=== PATIENT | male | born 1960 | race American Indian/Alaskan Native ===

== ENCOUNTER 2017-11-23 12:53 | Emergency (ER) | payer SELFPAY ==
--- NOTE | 2017-11-23 18:11 | Emergency Department Report ---
ED Lower Extremity HPI - General Chief Complaint: Extremity Injury, Lower Stated Complaint: (R) PATELLAR FRACTURE Time Seen by Provider: 11/23/17 17:19 Source: patient Mode of arrival: Ambulatory Limitations: No Limitations - History of Present Illness Initial Comments: 57-year-old male with right knee injury, onset one week ago. He states he was at work and fell onto the sidewalk, landing on his right knee. Pt states has been having pain ever since then, however finally was seen by the work clinic today. Pt states had x-rays done and told to report to the ER. Pt was given crutches and soft knee immobilizer. Form sent with patient from [facility] states x-rays showed "comminuted fracture to patella with unstable knee. " MD Complaint: knee injury -: week(s) (1) Type of Injury: blunt Place: work Severity: severe Improves With: nothing Worsens With: weight bearing, movement, palpation Context: fall Associated Symptoms: swelling, unable to bear weight Treatments Prior to Arrival: other (crutches, soft knee immobilizer) - Related Data Previous Rx's Medication Instructions Recorded Last Taken Type HYDROcodone/APAP 5-325 [Formoso 1 each PO Q6HR PRN #7 tablet 11/23/17 Unknown Rx 5/325] Naproxen [Naprosyn] 500 mg PO BID PRN #20 tablet 11/23/17 Unknown Rx Allergies Allergy/AdvReac Type Severity Reaction Status Date / Time No Known Allergies Allergy Unverified 11/23/17 13:13 ED Review of Systems ROS: Stated complaint: (R) PATELLAR FRACTURE Other details as noted in HPI Comment: All other systems reviewed and negative Musculoskeletal: joint swelling, arthralgia Skin: other (reports bruising) ED Past Medical Hx - Past Medical History Previous Medical History?: No - Surgical History Additional Surgical History: abdominal surgery - Social History Smoking Status: Never Smoker Substance Use Type: None - Medications Home Medications: Home Medications Medication Instructions Recorded Confirmed Last Taken Type HYDROcodone/APAP 5-325 [Formoso 1 each PO Q6HR PRN #7 tablet 11/23/17 Unknown Rx 5/325] Naproxen [Naprosyn] 500 mg PO BID PRN #20 tablet 11/23/17 Unknown Rx ED Physical Exam - General Limitations: No Limitations General appearance: alert, in no apparent distress - Head Head exam: Present: atraumatic, normocephalic - Eye Eye exam: Present: normal appearance - ENT ENT exam: Present: mucous membranes moist - Neck Neck exam: Present: normal inspection - Respiratory Respiratory exam: Present: normal lung sounds bilaterally. Absent: respiratory distress - Cardiovascular Cardiovascular Exam: Present: regular rate, normal rhythm - Extremities Exam Extremities exam: Present: other (swelling, ecchymosis, tenderness, decreased ROM to right knee) - Neurological Exam Neurological exam: Present: alert, oriented X3. Absent: motor sensory deficit - Psychiatric Psychiatric exam: Present: normal affect, normal mood - Skin Skin exam: Present: warm, dry, intact, normal color ED Course Vital Signs 11/23/17 11/23/17 13:14 19:13 Temperature 98.6 F 98.5 F Pulse Rate 94 H 76 Respiratory 18 20 Rate Blood Pressure 138/78 Blood Pressure 144/74 [Left] O2 Sat by Pulse 97 97 Oximetry ED Lower Extremity MDM - Radiology Data Radiology results: report reviewed, image reviewed - Medical Decision Making 57-year-old male with comminuted right patellar fracture sustained last week. Will replace patient's knee immobilizer with one that is more sturdy. He has crutches. Will give prescription for pain meds and orthopedic follow-up. - Differential Diagnosis fracture, dislocation Critical care attestation.: If time is entered above; I have spent that time in minutes in the direct care of this critically ill patient, excluding procedure time. ED Disposition Clinical Impression: Comminuted fracture of right patella Disposition: DC-01 TO HOME OR SELFCARE Is pt being admited?: No Condition: Stable Instructions: Patellar Fracture (ED) Prescriptions: HYDROcodone/APAP 5-325 [Formoso 5/325] 1 each PO Q6HR PRN #7 tablet PRN Reason: Pain Naproxen [Naprosyn] 500 mg PO BID PRN #20 tablet PRN Reason: pain Referrals: CHANTAL DIAL MD [Staff Physician] - 3-5 Days Forms: Work/School Release Form Time of Disposition: 18:55
--- NOTE | 2017-11-23 19:06 | XRay Report ---
FINAL REPORT EXAM: XR KNEE 3V RT HISTORY: fall TECHNIQUE: Frontal, lateral, oblique views right knee Comparison: None FINDINGS: There is a displaced horizontal fracture through the midbody of the patella. There is associated soft tissue swelling. There is degenerative change of the tibiofemoral and patellofemoral joints with joint space loss and osteophyte formation. There is evidence of an effusion in the suprapatellar pouch. IMPRESSION: 1. Displaced fracture of the patella. 2. Joint effusion. 3. Degenerative change tibiofemoral and patellofemoral joints.
[2017-11-23 19:14] VITALS: BP 144/74
== END 2017-11-23 19:13 | disposition home or self-care (01) ==
LOC: ED 12:53
DX: S82.001A Unspecified fracture of right patella, initial encounter for closed fracture (principal); W17.89XA Other fall from one level to another, initial encounter; Y93.89 Activity, other specified; Y92.89 Other specified places as the place of occurrence of the external cause; Y99.8 Other external cause status